=== PATIENT | female | born 1935 | race Caucasian/White ===

== ENCOUNTER 2020-06-13 15:08 | Inpatient (IN) | payer MEDICARE, BC ==
[~2020-06-13] VITALS: Ht 162.6 cm; Wt 89.4 kg
--- NOTE | 2020-06-13 15:09 | NUR ---
BIB RA 86 FROM [facility], MORE ALTERED THAN NORMAL,NOT EATING AND AMBULATING X 5 DAYS, TO ER BED 8, HOOKED TO MONITOR, CHANGED TO HOSP GOWN, WARM BLANKET PROVIDED, PATIENT AAO x 1, BREATHING EVEN AND UNLABORED, NAD NOTED, AWAITING MD FIGUEROA
--- NOTE | 2020-06-13 15:31 | NUR ---
DR COLEMAN AT BEDSIDE
[2020-06-13 16:02] LABS: BASOPHILS % (AUTO) 0.5 % (0.0-2.0); EOSINOPHILS % (AUTO) 0.1 % (0.0-6.0); HEMATOCRIT 40 % (33-45); HEMOGLOBIN 13.6 g/dL (11.5-14.8); LYMPHOCYTES # (AUTO) 1.1 /CMM (0.8-4.8); LYMPHOCYTES % (AUTO) 12.4 % (20.0-44.0); MEAN CORPUSCULAR HGB CONC 34 g/dl (31.0-36.0); MEAN CORPUSCULAR VOLUME 96 fL (82-100); MONOCYTES # (AUTO) 0.8 /CMM (0.1-1.30); MONOCYTES % (AUTO) 9.9 % (2.0-12.0); NEUTROPHILS # (AUTO) 6.6 /CMM (1.8-8.9); NEUTROPHILS % (AUTO) 77.1 % (43.0-81.0); PLATELET COUNT (AUTO) 274 /CMM (150-450); RED BLOOD CELL COUNT(AUTO) 4.22 MIL/uL (4.0-5.2); WHITE BLOOD COUNT (AUTO) 8.6 K/uL (4.3-11.0)
[2020-06-13] MEDS ORDERED: MELA3TAB41 PO (16:34)
[2020-06-13] MEDS ORDERED: DEXT15LI PO (16:34)
[2020-06-13] MEDS ORDERED: METO25TA6 PO (16:34)
[2020-06-13] MEDS ORDERED: LACT10SO PO (16:34)
[2020-06-13] MEDS ORDERED: FURO-144 PO (16:34)
[2020-06-13] MEDS ORDERED: ATOR40TA PO (16:34)
[2020-06-13] MEDS ORDERED: ALBU2.5V13 NEB (16:34)
[2020-06-13] MEDS ORDERED: FLUT12AE5 IH (16:34)
--- NOTE | 2020-06-13 16:42 | NUR ---
URINE SAMPLE COLLECTED VIA STRAIGHT CATHETER, URINE SAMPLE SENT TO LAB
--- NOTE | 2020-06-13 16:52 | NUR ---
RAPID COVID SWAB AND PCR DONE AND SENT TO LAB
[2020-06-13 16:54] LABS: SERUM AMMONIA 8 umol/L (11-32)
[2020-06-13 17:03] LABS: ALANINE AMINOTRANSFERASE 20 U/L (12-78); ALBUMIN 2.5 g/dL (3.4-5.0); ALKALINE PHOSPHATASE 94 U/L (46-116); ASPARTATE AMINOTRANSFERASE 18 U/L (15-37); BILIRUBIN,DIRECT 0.1 mg/dL (0.0-0.2); BILIRUBIN,TOTAL 0.4 mg/dL (0.2-1.0); CALCIUM, SERUM 9.4 mg/dL (8.5-10.1); CARBON DIOXIDE 34 mmol/L (21-32); CHLORIDE 96 mmol/L (98-107); CREATININE 1.6 mg/dL (0.6-1.3); GLUCOSE 121 mg/dL (74-106); POTASSIUM 3.4 mmol/L (3.5-5.1); SODIUM SERUM 136 mmol/L (136-145); TOTAL PROTEIN, SERUM 7.7 g/dL (6.4-8.2); UREA NITROGEN, BLOOD 34 mg/dL (7-18)
[2020-06-13 17:08] LABS: APPEARANCE,URINE Clear (CLEAR); BILIRUBIN,URINE Negative (NEGATIVE); BLOOD, URINE Moderate Ery/uL (NEGATIVE); COLOR,URINE Yellow (YELLOW); KETONES,URINE Negative (NEGATIVE); LEUKOCYTE ESTERASE ,URINE Negative (NEGATIVE); NITRITE, URINE Negative (NEGATIVE); PROTEIN,URINE Negative (NEGATIVE); UGLUCOSE Negative (NEGATIVE); UROBILINOGEN,URINE 0.2 EU/dL (0.2)
--- NOTE | 2020-06-13 17:09 | NUR ---
CALL FROM EMEKA,[phone], COMPLETION MANAGER OF FACILITY WHERE SHE LIVES AND MAY GO BACK ONCE SHE'S DISCHARGED,[address] [place] [address],[facility] [id number]
--- NOTE | 2020-06-13 17:23 | NUR ---
RAPID COVID RESULT: NEGATIVE
--- NOTE | 2020-06-13 17:25 | NUR ---
MADE HOUSE SUP AWARE OF RAPID COVID RESULT
[2020-06-13 17:48] LABS: BACTERIA,URINE Few /HPF (None Seen); SQUAMOUS EPITHELIAL CELL,UR Few /HPF (None Seen); WBC,URINE 0-2 /HPF (0-3)
[2020-06-13 18:04] LABS: THYROID STIMULATING HORMONE 2.916 uIU/mL (0.358-3.74)
--- NOTE | 2020-06-13 18:08 | NUR ---
PICKED UP BY YOSSI BRENNAN VIA [facility] FOR CT SCAN
[2020-06-13] MEDS ORDERED: ALBUTEROL FS 2.5 MG/0.5 ML VIAL.NEB NEB PRN (18:30)
[2020-06-13] MEDS ORDERED: MAGNESIUM HYDROXIDE 30 ML UDC PO PRN (19:00)
[2020-06-13] MEDS ORDERED: IV NS 0.9% 1,000 ML IV PRN (19:00)
[2020-06-13] MEDS ORDERED: POTASSIUM CHLORIDE 20 MEQ TAB.PRT.SR PO ONE (19:00)
[2020-06-13] MEDS ORDERED: hydrALAZINE HCL IV 20 MG VIAL IV ONE (19:00)
[2020-06-13] MEDS ORDERED: ONDANSETRON HCL/PF 4 MG/2 ML VIAL IVP PRN (19:00)
[2020-06-13] MEDS ORDERED: ACETAMINOPHEN 325 MG TABLET PO PRN (19:00)
[2020-06-13] MEDS ORDERED: MAG HYDROX/AL HYDROX/SIMETH 30 ML UDC PO PRN (19:00)
[2020-06-13] MEDS ORDERED: Z GUARD REMEDY 2 OZ OINT TP PRN (19:00)
--- NOTE | 2020-06-13 19:27 | NUR ---
REPORT GIVEN TO VIDHYA TAM FOR DEMETRIUS
--- NOTE | 2020-06-13 19:41 | NUR ---
REPORT RECEIVED FROM YONATAN JAMIL FOR DEMETRIUS
--- NOTE | 2020-06-13 19:41 | NUR ---
PT AAOX4, VSS,RESPIRATIONS EVEN AND UNLABORED ON RA W/ NAD NOTED. PT CONNECTED TO THE BAKERY HELPER AND POX. PT HAS NO MEDICAL COMPLAINTS AT THIS TIME
--- NOTE | 2020-06-13 21:31 | NUR ---
CALL BACK IN 5 MINS
--- NOTE | 2020-06-13 21:39 | NUR ---
REPORT CALLED TO ECONOMIC DEVELOPMENT COORDINATORYONATAN NAVARRO. WILL TRANSPORT PT VIA ACLS PROTOCOL.
[2020-06-13 22:00] VITALS: BP 144/68
[2020-06-13] MEDS ORDERED: Medication Not On Formulary EA (Melatonin 3 MG) PO SCH (22:00)
[2020-06-13 22:05] VITALS: BP 144/68
--- NOTE | 2020-06-13 22:05 | NUR ---
TELERN RECEIVED FROM ER AN 84 Y/O FEMALE PLEASANTLY CONFUSED WITH DIAGNOSIS OF GENERALIZED WEAKNESS. PER ER CHIEF COMPLAINT WAS NOT AMBULATING FOR 5 DAYS, NOT EATING. UNABLE TO GATHER INFOR FROM PATIENT SEC TO DEMENTIA, ABLE TO REACH STAFF OF [facility]. TEL NUMBER OF DTR PROVIDED BY B/C, PLACED CALL. PATIENT UNABLE TO FOLLOW, INCOHERENT, NO SOB, V/S STABLE. SR ON THE MONITOR. KEPT COMFORTABLE, TO CONTINUE.
--- NOTE | 2020-06-13 23:00 | NUR ---
TELERN INCONTINENT OF BOWELS AND BLADDER. HAD MODERATE AMOUNT OF SOFT STOOLS. NO SKIN BREAKDOWN. UNABLE TO FOLLOW COMMANDS, UNABLE TO ANSWERS QUESTIONS, PATIENT INCOHERENT.. RECEIVED CALL FROM DAUGHTER, ABLE TO PROVIDED PATIENTS' HISTORY. NO INFORMATION REGARDING VACCINES . PER DAUGHTER, PATIENT IS DNR, AND WILL FAX PAPERWORKS IN AM.
[2020-06-13] MEDS ORDERED: ENOXAPARIN SODIUM 40 MG/0.4 ML DISP.SYRIN SQ ONE (23:28)
[2020-06-13] MEDS: ATORVASTATIN 40 MG TABLET PO SCH (23:37)
[2020-06-13] MEDS: ENOXAPARIN SODIUM 30 MG/0.3 ML DISP.SYRIN SQ SCH (23:49)
[2020-06-14] VITALS (9 sets, daily range): BP systolic 101–151; BP diastolic 60–76
--- NOTE | 2020-06-14 01:41 | NUR ---
TELERSamuel UNCOOPERATIVE, REFUSED BLOOD WORK, WILL TRY TO DRAW IN AM. PRESENT IVF RUNNING AT 60CC/HR VIA LEFT AC.
--- NOTE | 2020-06-14 05:51 | NUR ---
TELERN AGREED BLOOD DRAW THIS TIME. FOUND IV SITE SOAK AND WET, PATIENT REMOVED IV HL, REFUSED TO HAVE IT RESTARTED, BOTH ARMS STIFF AND FIGHTING.WANTED TO BE LEFT ALONE, STATED NO PEOPLE AROUND HER THIS TIME. FREQUENTLY RE ORIENTED, LISTENS ONLY FOR SHORT PERIOD OF TIME.
[2020-06-14 06:39] LABS: BASOPHILS % (AUTO) 0.4 % (0.0-2.0); EOSINOPHILS % (AUTO) 0.5 % (0.0-6.0); HEMATOCRIT 39 % (33-45); HEMOGLOBIN 13.3 g/dL (11.5-14.8); LYMPHOCYTES # (AUTO) 0.9 /CMM (0.8-4.8); LYMPHOCYTES % (AUTO) 14.2 % (20.0-44.0); MEAN CORPUSCULAR HGB CONC 34 g/dl (31.0-36.0); MEAN CORPUSCULAR VOLUME 95 fL (82-100); MONOCYTES # (AUTO) 0.6 /CMM (0.1-1.30); MONOCYTES % (AUTO) 9.6 % (2.0-12.0); NEUTROPHILS # (AUTO) 4.9 /CMM (1.8-8.9); NEUTROPHILS % (AUTO) 75.3 % (43.0-81.0); PLATELET COUNT (AUTO) 270 /CMM (150-450); RED BLOOD CELL COUNT(AUTO) 4.16 MIL/uL (4.0-5.2); WHITE BLOOD COUNT (AUTO) 6.5 K/uL (4.3-11.0)
--- NOTE | 2020-06-14 06:41 | NUR ---
TELERN REFUSED STILL HL. UNCOOPERATIVE AT THIS TIME. WILL ENDORSE TO INCOMING RN
[2020-06-14 07:07] LABS: ALBUMIN 2.3 g/dL (3.4-5.0); BILIRUBIN,TOTAL 0.4 mg/dL (0.2-1.0); CALCIUM, SERUM 9.1 mg/dL (8.5-10.1); CREATININE 1.2 mg/dL (0.6-1.3); MAGNESIUM 2.4 mg/dL (1.8-2.4); PHOSPHORUS 2.8 mg/dL (2.5-4.9); POTASSIUM 3.5 mmol/L (3.5-5.1); TOTAL PROTEIN, SERUM 7.3 g/dL (6.4-8.2)
--- NOTE | 2020-06-14 07:48 | NUR ---
QUARTER SUPERVISOR OPENING NOTES BEDSIDE ENDORSEMENT DONE. PATIENT IS IN BED, AWAKE AND VERBALLY RESPONSIVE. A/O X1, ABLE TO MAKE SIMPLE NEEDS KNOWN. BREATHING EVEN AND UNLABORED, TOLERATING ROOM AIR. PT CURRENTLY EATING BREAKFAST AT THIS TIME. ON TELE MONITORING, SR W/ PVC W/ HR AT 70'S, NO CARDIAC DISTRESS NOTED. NO PERIPHERAL IV PER PREVIOUS SHIFT RN REPORT. SAFETY PRECAUTIONS IN PLACE: BED ON LOWEST AND LOCKED POSITION, SR UP X2, CALL LIGHT W/IN REACH. WILL CONTINUE TO MONITOR.
[2020-06-14] MEDS: METOPROLOL TARTRATE 25 MG TABLET PO SCH ×2 (08:44→16:46)
[2020-06-14] MEDS ORDERED: FUROSEMIDE 40 MG TABLET PO SCH (09:00)
--- NOTE | 2020-06-14 18:50 | NUR ---
E MARKETING SPECIALIST CLOSING NOTES PATIENT IS IN BED AWAKE AND VERBALLY RESPONSIVE. A/O X1, ABLE TO MAKE SIMPLE NEEDS KNOWN. BREATHING EVEN AND UNLABORED ON ROOM AIR. ON TELE MONITORING, SR W/ PVC W/ HR AT 70-75, NO CARDIAC DISTRESS NOTED. PERIPHERAL IV G#24 ON RIGHT FOREARM, INTACT AND PATENT. SAFETY PRECAUTIONS MAINTAINED: BED ON LOWEST AND LOCKED POSITION, SR UP X2, CALL LIGHT W/IN REACH. WILL ENDORSE TO CISCO NETWORK ENGINEER RN FOR DEMETRIUS.
[2020-06-14] MEDS: ENOXAPARIN SODIUM 30 MG/0.3 ML DISP.SYRIN SQ SCH (20:48)
--- NOTE | 2020-06-14 20:49 | NUR ---
turner and former automatic: received report from day rn oleg. pt a/o to self only, incoherent, on ra respirations even and unlabored. iv access patent and flushing well, on hl. pt trying to get out of bed stating she needs to leave, reorientation provided to pt, fall precaution engaged, bed alarm secured. spoke with markie yousif, as drone software development engineer will be sitting outside pt's room to have easy access to pt in case she tried to get out without help. assisted in feeding pt, pt consumed 120ml of apple juice and able to eat 3 spoonful of pudding. safety precautions for fall initiated, call light in reach, will continue monitoring pt.
[2020-06-14] MEDS: ATORVASTATIN 40 MG TABLET PO SCH (21:03)
[2020-06-15 00:06] VITALS: BP 144/68
[2020-06-15 00:07] VITALS: BP 144/68
[2020-06-15 04:00] VITALS: BP 148/70
[2020-06-15 04:02] VITALS: BP 148/70
--- NOTE | 2020-06-15 06:51 | NUR ---
end of shift report: pt remains a/o x1, incoherent, on ra, appears calm and comfortable, no facial grimace noted. iv access remains patent and flushing well, onhl. no s/s of iv infiltration noted. covered with brown sleeves. tele monitoring sinus rhythm hr 71. do not give ativan per family instruction. plan of care: dc plan in am. safety precautions for fall remains engaged, call light in reach, will endorse to day rn for continuity of care.
--- NOTE | 2020-06-15 07:21 | NUR ---
MILLWRIGHT SUPERVISOR OPENING NOTES BEDSIDE ENDORSEMENT DONE. PATIENT IS IN BED SLEEPING BUT AROUSABLE. A/O X1, ABLE TO MAKE SIMPLE NEEDS KNOWN, REORIENTATION PROVIDED APPLICABLE. BREATHING EVEN AND UNLABORED, TOLERATING ROOM AIR. ON TELE MONITORING, SR W/ PVC W/ HR AT MID 70'S, NO CARDIAC DISTRESS NOTED. PERIPHERAL IV ON BRAYAN G#22 INTACT AND PATENT. SAFETY PRECAUTIONS IN PLACE: BED ON LOWEST AND LOCKED POSITION, SR UP X2, CALL LIGHT W/IN REACH. WILL CONTINUE TO MONITOR.
[2020-06-15 08:00] VITALS: BP 130/83
[2020-06-15] MEDS: METOPROLOL TARTRATE 25 MG TABLET PO SCH ×2 (08:35→16:52)
--- NOTE | 2020-06-15 14:36 | NUR ---
RN NOTES INFORMED BY CHARGE NURSE LAUREN THAT PATIENT IS FOR DISCHARGE TODAY TO [facility], SPECIAL DUTY NURSE TIME OF 6PM VIA AMBULANCE PER AIR QUALITY CONSULTANT.
--- NOTE | 2020-06-15 16:08 | NUR ---
RN NOTES PATIENT REPORT AND DISCHARGE INSTRUCTIONS/EDUCATION GIVEN TO ANI OF [facility]. AMY JOHNSTON, MADE AWARE OF PATIENT'S RETURN TO [facility].
--- NOTE | 2020-06-15 17:16 | NUR ---
RN NOTES RECEIVED CALL FROM DUNCAN FROM THE LAB W/ CRITICAL RESULT FOR PATIENT'S BLOOD CULTURE W/ GRAM POSITIVE ORGANISM IN THE GRAM STAIN. SPOKE W/ DR. NEIL AND INFORMED OF CRITICAL RESULT W/ ORDER TO HOLD DISCHARGE FOR NOW AND GIVE VANCOMYCIN 1GM IV X1 DOSE. SPOKE W/ CHARGE NURSE AND THERAPEUTIC CASE MANAGER AND INFORMED ABOUT MD'S ORDERS. THERAPEUTIC CASE MANAGER TO CALL AMBULANCE AND INFORM OF CANCELLATION. WILL CONTINUE TO MONITOR.
[2020-06-15] MEDS ORDERED: VANCOMYCIN 1 GM in IV D5W 250 ML IV ONE (17:30)
--- NOTE | 2020-06-15 19:17 | NUR ---
MS RN CLOSING NOTES PATIENT IS IN BED, AWAKE AND VERBALLY RESPONSIVE. A/O X1, ABLE TO MAKE SIMPLE NEEDS KNOWN, REORIENTATION PROVIDED APPLICABLE. BREATHING EVEN AND UNLABORED, TOLERATING ROOM AIR. PERIPHERAL IV ON BRAYAN G#22 INTACT AND PATENT. DISCHARGE HELD TODAY PER DR JACOBS W/ ORDERS NOTED. VANCOMYCIN IV ADMINISTERED INDICATED. SAFETY PRECAUTIONS MAINTAINED: BED ON LOWEST AND LOCKED POSITION, SR UP X2, CALL LIGHT W/IN REACH. WILL ENDORSE TO HOSPITAL CLEANER RN FOR DEMETRIUS.
--- NOTE | 2020-06-15 19:45 | NUR ---
RN NOTES RECEIVED PT. AWAKE A/OX2, PT IS CONFUSED, SR ON TELE MONITOR HR-79, CALL LIGHT WITHIN REACH, SIDERAILSUIPX2, CONTINUE TO MONITOR
[2020-06-15 20:00] VITALS: BP 145/75
[2020-06-15] MEDS: ATORVASTATIN 40 MG TABLET PO SCH (22:44)
[2020-06-15] MEDS: ENOXAPARIN SODIUM 30 MG/0.3 ML DISP.SYRIN SQ SCH (22:46)
[2020-06-16] VITALS: BP 141/74
--- NOTE | 2020-06-16 06:23 | NUR ---
RN NOTES DENIES PAIN, NO SOB, MORNING CARE RENDERED, CALL LIGHT WITHIN REACH, SIDERAILSUPX2, PT. NEEDS ATTENDED
[2020-06-16 08:00] VITALS: BP 126/70
[2020-06-16] MEDS: METOPROLOL TARTRATE 25 MG TABLET PO SCH ×2 (08:55→16:22)
[2020-06-16] MEDS: VANCOMYCIN 1 GM in IV D5W 250 ML IV SCH (12:23)
[2020-06-16 16:00] VITALS: BP 126/69
--- NOTE | 2020-06-16 16:50 | NUR ---
rn notes patient remains on room air, no sob noted, a/o x1 and is confused. No agitation noted. R hand IV access as patient pulled out her last IV access on the left arm. dc planning still remains intact at this time. bed at the lowest setting, call light within reach, side rails up x2.
--- NOTE | 2020-06-16 19:23 | NUR ---
RN OPENING NOTES PATIENT RECEIVED RESTING IN BED A/O X 1, CONFUSED. STABLE ON RA WITH BREATHING EVEN AND UNLABORED, NO SOB NOTED. NO SIGNS OF ACUTE DISTRESS. NO SIGNS OF PAIN OR DISCOMFORT AT THE MOMENT. IV LOCATED ON R WRIST HL. SAFETY PRECAUTIONS IN PLACE WITH BED IN LOWEST POSITION, CALL LIGHT WITHIN REACH, BREAKS ON, SIDE RAILS UP. WILL CONTINUE TO MONITOR THROUGHOUT THE NIGHT.
[2020-06-16 20:00] VITALS: BP 108/58
[2020-06-16] MEDS: ATORVASTATIN 40 MG TABLET PO SCH (21:11)
[2020-06-16] MEDS: ENOXAPARIN SODIUM 30 MG/0.3 ML DISP.SYRIN SQ SCH (21:11)
[2020-06-17] MEDS: VANCOMYCIN 1 GM in IV D5W 250 ML IV SCH (05:30)
[2020-06-17 06:42] LABS: CREATININE 1.2 mg/dL (0.6-1.3); POTASSIUM 3.1 mmol/L (3.5-5.1)
--- NOTE | 2020-06-17 06:47 | NUR ---
RN OPENING NOTES PATIENT RESTING IN BED A/O X 1, CONFUSED. STABLE ON RA WITH BREATHING EVEN AND UNLABORED, NO SOB NOTED. NO SIGNS OF ACUTE DISTRESS. NO SIGNS OF PAIN OR DISCOMFORT AT THE MOMENT. IV LOCATED ON R WRIST #22 HL. SAFETY PRECAUTIONS IN PLACE WITH BED IN LOWEST POSITION, CALL LIGHT WITHIN REACH, BREAKS ON, SIDE RAILS UP. ALL NEEDS ATTENDED TO. PATIENT KEPT CLEAN AND DRY. WILL ENDORSE TO ONCOMING SHIFT ABOUT DEMETRIUS. Addendum: 06/17/20 at 0650 by ALEXANDER JOSE RN RN CLOSING NOTES
--- NOTE | 2020-06-17 07:20 | NUR ---
Patient is on room air, no sob noted, a/o x1 and is confused. No agitation noted at this time. R hand IV access covered with Kerlix, patient noted playing with it. Bed at the lowest setting, call light within reach, side rails up x2.Will continue to monitor
[2020-06-17] MEDS: BUDESONIDE RESPULE INH 0.5 MG/2 ML AMPUL.NEB IH SCH ×2 (07:52→15:08)
[2020-06-17 08:00] VITALS: BP 130/69
[2020-06-17] MEDS: METOPROLOL TARTRATE 25 MG TABLET PO SCH ×2 (08:44→16:49)
[2020-06-17] MEDS ORDERED: POTASSIUM CHLORIDE 20 MEQ TAB.PRT.SR PO ONE (12:00)
--- NOTE | 2020-06-17 12:33 | NUR ---
Patient pulled out IV line due to confusion. Will attempt to insert a new IV line
--- NOTE | 2020-06-17 13:10 | NUR ---
Unsuccessful attempt for IV insertion. Patient became agitated . Will try later
[2020-06-17 16:00] VITALS: BP 103/44
--- NOTE | 2020-06-17 18:03 | NUR ---
Patient refused IV insertion. Unable to educate due to pt is confused
--- NOTE | 2020-06-17 18:56 | NUR ---
Patient is on room air, no sob noted, a/o x1 and is confused.Needs an IV line. Patient had 2 loose small BM and MD informed. Possible d/c to facility tomorrow. Bed at the lowest setting, call light within reach, side rails up x2.Will endorse to next shift for DEMETRIUS.
--- NOTE | 2020-06-17 19:20 | NUR ---
RN OPENING NOTES Received patient resting on bed. No s/sx of discomfort noted at this time. No IV access noted, MD aware. On fall and aspiration precautions. Will continue to monitor accordingly.
[2020-06-17 20:00] VITALS: BP 130/64
[2020-06-17 20:11] VITALS: BP 130/64
[2020-06-17] MEDS: ATORVASTATIN 40 MG TABLET PO SCH (21:30)
[2020-06-17] MEDS: METRONIDAZOLE 500 MG TABLET PO SCH (21:30)
[2020-06-17] MEDS: ENOXAPARIN SODIUM 30 MG/0.3 ML DISP.SYRIN SQ SCH (21:31)
--- NOTE | 2020-06-17 23:15 | NUR ---
RN NOTES Pt noted with 3rd episode of diarrhea. Stool sample collected for C-diff test as ordered. Labeled and sent to lab accordingly.
[2020-06-18] MEDS: METRONIDAZOLE 500 MG TABLET PO SCH ×3 (04:56→21:02)
--- NOTE | 2020-06-18 07:01 | NUR ---
RN CLOSING NOTES Pt asleep on bed, no new complaints noted within the shift. All nursing needs attended. Kept on bed clean, dry and comfortable. Endorsed.
--- NOTE | 2020-06-18 07:30 | NUR ---
ms rn received on bed,awake,alert,oriented x 1,very confused,no distress at this itme,all needs attended.
[2020-06-18 07:41] LABS: CALCIUM, SERUM 8.6 mg/dL (8.5-10.1); CREATININE 1.2 mg/dL (0.6-1.3); POTASSIUM 3.3 mmol/L (3.5-5.1)
[2020-06-18 08:00] VITALS: BP 114/71
[2020-06-18] MEDS: BUDESONIDE RESPULE INH 0.5 MG/2 ML AMPUL.NEB IH SCH ×2 (08:29→15:50)
--- NOTE | 2020-06-18 09:00 | NUR ---
ms jarquin breakfast served,due meds given,tolerated well.
[2020-06-18] MEDS: METOPROLOL TARTRATE 25 MG TABLET PO SCH ×2 (09:31→17:05)
[2020-06-18] MEDS ORDERED: POTASSIUM CHLORIDE 20 MEQ TAB.PRT.SR PO SCH (10:30)
--- NOTE | 2020-06-18 12:00 | NUR ---
ms rn on bed, eating lunch.
[2020-06-18 16:00] VITALS: BP 122/57
--- NOTE | 2020-06-18 16:36 | NUR ---
ms rn on bed, sleeping.
[2020-06-18 17:54] LABS: BASOPHILS # (AUTO) 0.1 /CMM (0.0-0.2); BASOPHILS % (AUTO) 1.2 % (0.0-2.0); EOSINOPHILS % (AUTO) 1.3 % (0.0-6.0); HEMATOCRIT 38 % (33-45); HEMOGLOBIN 12.4 g/dL (11.5-14.8); LYMPHOCYTES % (AUTO) 10.1 % (20.0-44.0); MEAN CORPUSCULAR HGB CONC 32 g/dl (31.0-36.0); MEAN CORPUSCULAR VOLUME 96 fL (82-100); MONOCYTES # (AUTO) 0.6 /CMM (0.1-1.30); MONOCYTES % (AUTO) 5.5 % (2.0-12.0); NEUTROPHILS # (AUTO) 8.2 /CMM (1.8-8.9); NEUTROPHILS % (AUTO) 81.9 % (43.0-81.0); PLATELET COUNT (AUTO) 256 /CMM (150-450); RED BLOOD CELL COUNT(AUTO) 3.96 MIL/uL (4.0-5.2); WHITE BLOOD COUNT (AUTO) 10.1 K/uL (4.3-11.0)
[2020-06-18 20:00] VITALS: BP 124/56
--- NOTE | 2020-06-18 20:00 | NUR ---
RN NOTES RECEIVED PT. AWAKE ON BED, A/OX1-CONFUSED, NO HEPLOCK-MD IS AWARE, NOT IN DISTRESS, NO PAIN NOTED, SIDERAILSUPX2, CONTINUE TO MONITOR
[2020-06-18] MEDS: ATORVASTATIN 40 MG TABLET PO SCH (21:02)
[2020-06-18] MEDS: ENOXAPARIN SODIUM 30 MG/0.3 ML DISP.SYRIN SQ SCH (21:03)
[2020-06-19] MEDS: METRONIDAZOLE 500 MG TABLET PO SCH ×2 (05:26→14:51)
--- NOTE | 2020-06-19 06:42 | NUR ---
RN NOTES AWAKE, DENIES PAIN, NO SOB, MORNING CARE RENDERED, PT. NEEDS ATTENDED
[2020-06-19 07:18] LABS: BASOPHILS % (AUTO) 0.7 % (0.0-2.0); EOSINOPHILS % (AUTO) 2.7 % (0.0-6.0); HEMATOCRIT 40 % (33-45); HEMOGLOBIN 13.1 g/dL (11.5-14.8); LYMPHOCYTES # (AUTO) 0.9 /CMM (0.8-4.8); LYMPHOCYTES % (AUTO) 13.1 % (20.0-44.0); MEAN CORPUSCULAR HGB CONC 33 g/dl (31.0-36.0); MEAN CORPUSCULAR VOLUME 96 fL (82-100); MONOCYTES # (AUTO) 0.5 /CMM (0.1-1.30); MONOCYTES % (AUTO) 7.5 % (2.0-12.0); NEUTROPHILS # (AUTO) 5.2 /CMM (1.8-8.9); PLATELET COUNT (AUTO) 254 /CMM (150-450); RED BLOOD CELL COUNT(AUTO) 4.14 MIL/uL (4.0-5.2); WHITE BLOOD COUNT (AUTO) 6.9 K/uL (4.3-11.0)
[2020-06-19 07:28] LABS: CALCIUM, SERUM 8.6 mg/dL (8.5-10.1); CREATININE 0.9 mg/dL (0.6-1.3); MAGNESIUM 2.4 mg/dL (1.8-2.4); PHOSPHORUS 2.6 mg/dL (2.5-4.9); POTASSIUM 3.3 mmol/L (3.5-5.1)
--- NOTE | 2020-06-19 07:35 | NUR ---
ms rn received on bed, awake,very confused, not in any form of distress, respirations even and unlabored,no sob noted, lungs are clear,adbomen soft,positive bowel sounds,no s/s of pain at this time, will monitor patient's condition.
[2020-06-19 08:00] VITALS: BP 146/77
[2020-06-19] MEDS: BUDESONIDE RESPULE INH 0.5 MG/2 ML AMPUL.NEB IH SCH ×2 (08:14→15:15)
[2020-06-19] MEDS: METOPROLOL TARTRATE 25 MG TABLET PO SCH ×2 (08:31→18:27)
--- NOTE | 2020-06-19 09:30 | NUR ---
ms jarquin breakfast served,due meds given,tolerated well.
[2020-06-19 09:44] LABS: EOSINOPHILS % (MANUAL) 5 % (0-4); LYMPHOCYTES % (MANUAL) 15 % (16-48); METAMYELOCYTES % 1 % (0-0); MONOCYTES % (MANUAL) 8 % (0-11.0); MYELOCYTES % 2 % (0-0); NEUTROPHILS % (MANUAL) 69 (42-76)
[2020-06-19] MEDS ORDERED: POTASSIUM CHLORIDE 20 MEQ TAB.PRT.SR PO SCH (10:00)
[2020-06-19] MEDS ORDERED: POTASSIUM CHLORIDE 20 MEQ TAB.PRT.SR PO ONE (10:00)
--- NOTE | 2020-06-19 12:00 | NUR ---
ms rn on bed, all needs attended.
[2020-06-19 16:00] VITALS: BP 118/63
--- NOTE | 2020-06-19 16:45 | NUR ---
ms rn cdiff resulted negative, will d/ patient at 730pm per cm.
--- NOTE | 2020-06-19 18:00 | NUR ---
ms rn stat covid test sent to labs, awaiting for result.daughter at bedside.
[2020-06-19 18:27] VITALS: BP 142/77
--- NOTE | 2020-06-19 19:45 | NUR ---
RN NOTES PT. LEFT VIA AMBULANCE,NOT IN DISTRESS, DENIES PAIN, PT. LEFT IN STABLE CONDITION
== END 2020-06-19 19:45 | DRG 640 ==
LOC: ER 15:20 → TELE 21:46 → MED 06-16 09:57
PROVIDERS: ADMIT Internal Medicine; ATTEND Nurse Practitioner Acute Care
DX: E86.0 Dehydration (principal); N17.0 Acute kidney failure with tubular necrosis; I50.32 Chronic diastolic (congestive) heart failure; G93.40 Encephalopathy, unspecified; I11.0 Hypertensive heart disease with heart failure; G30.9 Alzheimer's disease, unspecified; F02.80 Dementia in other diseases classified elsewhere, unspecified severity, without behavioral disturbance, psychotic disturbance, mood disturbance, and anxiety; E87.6 Hypokalemia; R53.1 Weakness; E66.9 Obesity, unspecified; Z68.33 Body mass index [BMI] 33.0-33.9, adult; E86.9 Volume depletion, unspecified
CPT/HCPCS: 36415; 70450-TC; 71045-TC; 72125-TC; 74018; 80048-TC; 80053-TC; 80061-TC; 80076-TC; 81000-TC; 82140-TC; 83605-TC; 83735-TC; 84100-TC; 84443-TC; 84484-TC; 85025-TC; 85730-TC; 87040-TC; 87081-TC; 87086-TC; 93307-TC; 94799-TC; 97110-TC; 97116-TC; 97530-TC; A4217; C9803-CS; G0378; J1650; J3370; J7030; J7060; U0003-CS